=== PATIENT | male | born 1995 | race Caucasian/White ===

== ENCOUNTER 2019-08-05 05:18 | Emergency (ER) | payer OTHER ==
[2019-08-05] MEDS ORDERED: DIPHENHYDRAMINE HCL 50 MG CAPSULE PO ONE (06:27)
--- NOTE | 2019-08-05 06:35 | ER Document Report ---
ED Allergic Reaction - General Chief Complaint: Rash Stated Complaint: POSSIBLE ALLERGIC REACTION Time Seen by Provider: 08/05/19 06:19 Primary Care Provider: YOAV LEAL MD [ACTIVE STAFF] - Follow up as needed DOMINIC BAE MD [ACTIVE STAFF] - Follow up as needed Notes: Patient is otherwise healthy 24-year-old male presents to the emergency department for a rash. Voices he has had this rash intermittently for the last month. [place] States the [place] stated he should follow-up with an business account specialist. States he has not followed up yet. Patient's denying any new exposures to include lotions, detergents, pets. Patient voices he typically takes Benadryl for rash but this morning he had an "itchy feeling" in his throat. He is denying any vomiting, cough, respiratory distress. TRAVEL OUTSIDE OF THE [place] IN LAST 30 DAYS: No - Related Data Allergies/Adverse Reactions: No Known Allergies Allergy (Verified 08/05/19 05:25) Past Medical History - General Information source: Patient - Social History Smoking Status: Never Smoker Chew tobacco use (# tins/day): No Frequency of alcohol use: None Drug Abuse: None Family History: Reviewed & Not Pertinent Patient has suicidal ideation: No Patient has homicidal ideation: No Review of Systems - Review of Systems Constitutional: denies: Fever EENT: See HPI Cardiovascular: See HPI Respiratory: See HPI Gastrointestinal: No symptoms reported Genitourinary: No symptoms reported Male Genitourinary: No symptoms reported Musculoskeletal: No symptoms reported Skin: See HPI Hematologic/Lymphatic: No symptoms reported Neurological/Psychological: No symptoms reported Physical Exam - Vital signs Vitals: Temp Pulse Resp BP Pulse Ox 97.5 F 51 L 14 123/70 98 08/05/19 05:23 08/05/19 05:23 08/05/19 05:23 08/05/19 05:23 08/05/19 05:23 - Notes Notes: GENERAL: Alert, interacts well. No acute distress. HEAD: Normocephalic, atraumatic. EYES: Pupils equal, round, and reactive to light. Extraocular movements intact. Left upper eye minorly swollen. No proptosis. ENT: Oral mucosa moist, tongue midline. Right lower lip minorly swollen. Pharynx within normal limits, uvula nonswollen nondeviated. NECK: Full range of motion. Supple. Trachea midline. LUNGS: Clear to auscultation bilaterally, no wheezes, rales, or rhonchi. No respiratory distress. HEART: Regular rate and rhythm. No murmur ABDOMEN: Soft, non-tender. Non-distended. Bowel sounds present in all 4 quadrants. EXTREMITIES: Moves all 4 extremities spontaneously. No edema, normal radial and dorsalis pedis pulses bilaterally. No cyanosis. BACK: no cervical, thoracic, lumbar midline tenderness. No saddle anesthesia, normal distal neurovascular exam. NEUROLOGICAL: Alert and oriented x3. Normal speech. cranial nerves II through XII grossly intact. PSYCH: Normal affect, normal mood. SKIN: Warm, dry, normal turgor. Urticaria noted right upper arm. Course - Re-evaluation Re-evalutation: 08/05/19 06:36 Patient had initially complained of an "itchy throat" potential respiratory distress to nursing staff. Upon my assessment patient is denying these complaints. Denies sore throat, scratchy throat, respiratory distress, cough. 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 Discussed continued use of Benadryl and following up with primary care provider or business account specialist. Discussed close return precautions should he show signs of anaphylaxis. Patient voices understanding, stable for discharge. - Vital Signs Vital signs: Temp Pulse Resp BP Pulse Ox 97.7 F 48 L 12 126/82 H 99 08/05/19 06:47 08/05/19 06:47 08/05/19 06:47 08/05/19 06:47 08/05/19 06:47 Discharge - Discharge Clinical Impression: Urticaria Condition: Stable Disposition: HOME, SELF-CARE Instructions: Acute Urticaria ([facility]) Additional Instructions: As we discussed you have been seen and treated in the emergency department for potential allergic reaction. Please make sure he continue to take Benadryl every 6 hours as needed for rash and itching. Please immediately return to the emergency department should you have any signs and symptoms or respiratory distress. Please also return to the emergency room for any other concerns. Please follow-up with a primary care provider in the next 12 to 24 hours. Forms: Return to Work Referrals: DOMINIC BAE MD [ACTIVE STAFF] - Follow up as needed YOAV LEAL MD [ACTIVE STAFF] - Follow up as needed
[2019-08-05 06:49] VITALS: BP 126/82
== END 2019-08-05 07:02 | disposition home or self-care (01) ==
LOC: ER 05:18
DX: L50.9 Urticaria, unspecified (principal); R09.89 Other specified symptoms and signs involving the circulatory and respiratory systems
CPT/HCPCS: 99283